=== PATIENT | male | born 1995 | race Caucasian/White ===

== ENCOUNTER 2021-05-06 18:27 | Emergency (ER) | payer SELFPAY ==
[~2021-05-06] VITALS: Ht 188 cm; Wt 88.6 kg
[2021-05-06 19:59] LABS: BASO # 0.1 x10^3/uL (0.0-0.2); BASO % 1 % (0-3); EOS # 0.1 x10^3/uL (0.0-0.7); EOS % 1 % (0-3); HEMATOCRIT 44.7 % (39.0-53.0); HEMOGLOBIN 15.3 g/dL (13.0-17.5); LYMPH # 1.8 x10^3/uL (1.0-4.8); LYMPH % 20 % (24-48); MEAN CORPUSCULAR HEMOGLOBIN 31 pg (25-35); MEAN CORPUSCULAR HGB CONC 34 g/dL (31-37); MEAN CORPUSCULAR VOLUME 91 fL (79-100); MONO # 0.5 x10^3/uL (0.0-1.1); MONO % 6 % (0-9); NEUT # 6.5 x10^3/uL (1.8-7.7); NEUT % 72 % (31-73); PLATELET COUNT 341 x10^3/uL (140-400); RED BLOOD COUNT 4.91 x10^6/uL (4.30-5.70); RED CELL DISTRIBUTION WIDTH 13.9 % (11.5-14.5)
--- NOTE | 2021-05-06 20:01 | RAD ---
XR CHEST 1V 05/06/2021 7:37 PM INDICATION: Chest pain COMPARISON: None available TECHNIQUE: Portable frontal view of the chest is provided. FINDINGS: The cardiomediastinal silhouette is within normal limits. Lungs are clear. There are no significant pleural effusions. There is no pulmonary vascular congestion. No pneumothora x. No suspicious osseous abnormality. IMPRESSION: There is no acute cardiopulmonary process. Electronically signed by: Toshia Carrillo MD (05/06/2021 7:59 PM) [facility]
[2021-05-06 20:16] LABS: PARTIAL THROMBOPLASTIN TIME 28 SEC (24-38); PROTHROMBIN TIME PATIENT 12.3 SEC (11.7-14.0)
[2021-05-06 20:19] LABS: D-DIMER < 0.27 ug/mlFEU (0.00-0.50)
[2021-05-06 20:23] LABS: CALCIUM 9.4 mg/dL (8.5-10.1); CREATININE 1.1 mg/dL (0.7-1.3); POTASSIUM 4.1 mmol/L (3.5-5.1)
--- NOTE | 2021-05-06 20:24 | PHYS DOC ---
Past Medical History Past Surgical History: No Surgical History Smoking Status: Current Every Day Smoker Alcohol Use: Occasionally Adult General Chief Complaint Chief Complaint: CHEST PAIN HPI HPI The patient is a 25-year-old male who is otherwise healthy. He is a smoker. He presents for evaluation of acute on chronic chest discomfort. He states that for about the past 6 months he will intermittently have episodes of left-sided sharp nonexertional nonpleuritic sternal chest discomfort, nonradiating. Discomfort is described as a tightness when it occurs. He states that symptoms will last for several hours when they occur; patient states he usually goes to sleep and wakes up the next morning and symptoms are gone. He lives in [place] and has presented to an [place] emergency department once for evaluation of these symptoms; work-up was reassuring and he was referred to primary care and to cardiology for follow-up. He has seen the primary care doctor once and has not seen cardiology. All of the care in question occurred several months ago. Mr. Martin presents for evaluation of a typical episode of his left-sided sharp sternal chest discomfort. Onset was about 2 hours prior to arrival. Severity about a 3 out of 10 at present and discomfort is described as a tightness. Associated tingling of his bilateral hands. Associated anxiety. Patient is visibly anxious and breathing quickly upon initial evaluation. He denies a ssociated fevers, nausea or vomiting, diaphoresis, headache, focal or lateralizing weakness, numbness or tingling, neck stiffness/pain/meningismus, vision changes, shortness of breath, abdominal pain, flank pain, back pain, dysuria, hematuria, polyuria or oliguria, changes in bowel habits, pain or s welling to arms or legs. Vital signs in triage here are notable for tachycardia as well as elevated blood pressure. After being roomed, both heart rate and blood pressure have normalized without any specific intervention. Review of Systems Review of Systems A 12 point review of systems was completed and was negative except where noted in HPI above. Allergies Allergies Allergies Coded Allergies Type Severity Reaction Last Updated Verified No Known Drug Allergies 05/06/21 No Physical Exam Physical Exam 25-year-old male appearing nontoxic and in no acute distress. He appears anxious. Head is normocephalic and atraumatic. Neck is supple and nontender. Oropharynx is moist. Lungs are clear to auscultation at all stations. There is a normal S1 and S2 without rubs or gallops and capillary refill is appropriate, less than 2 seconds globally. Abdomen is soft, nontender nondistended without pulsatile mass. Skin is warm and dry without cyanosis, clubbing or edema. Psychiatrically, the patient demonstrates appropriate mood and affect and is alert. Evaluation of the extremities reveals BUEs and BLEs neurovascularly intact distally with strength out of 5, sensation intact light touch in all nerve distributions, radial, DP and PT pulses 2+ and equal bilaterally, capillary refill less than 2 seconds, hands and feet warm and well-perfused. No dependent peripheral edema distally. No calf tenderness swelling bilaterally. Homans test is negative bilaterally. Current Patient Data Vital Signs Vital Signs Date Time Temp Pulse Resp B/P (MAP) Pulse Ox O2 Delivery O2 Flow Rate FiO2 05/06/21 19:50 101 18 144/83 (103) 98 Room Air 05/06/21 18:30 98.2 98.2 Lab Values Laboratory Tests Test 05/06/21 19:44 05/06/21 21:27 White Blood Count 9.0 x10^3/uL (4.0-11.0) Red Blood Count 4.91 x10^6/uL (4.30-5.70) Hemoglobin 15.3 g/dL (13.0-17.5) Hematocrit 44.7 % (39.0-53.0) Mean Corpuscular Volume 91 fL (79-100) Mean Corpuscular Hemoglobin 31 pg (25-35) Mean Corpuscular Hemoglobin Concent 34 g/dL (31-37) Red Cell Distribution Width 13.9 % (11.5-14.5) Platelet Count 341 x10^3/uL (140-400) Neutrophils (%) (Auto) 72 % (31-73) Lymphocytes (%) (Auto) 20 % (24-48) L Monocytes (%) (Auto) 6 % (0-9) Eosinophils (%) (Auto) 1 % (0-3) Basophils (%) (Auto) 1 % (0-3) Neutrophils # (Auto) 6.5 x10^3/uL (1.8-7.7) Lymphocytes # (Auto) 1.8 x10^3/uL (1.0-4.8) Monocytes # (Auto) 0.5 x10^3/uL (0.0-1.1) Eosinophils # (Auto) 0.1 x10^3/uL (0.0-0.7) Basophils # (Auto) 0.1 x10^3/uL (0.0-0.2) Prothrombin Time 12.3 SEC (11.7-14.0) Prothrombin Time INR 0.9 (0.8-1.1) Activated Partial Thromboplast Time 28 SEC (24-38) D-Dimer (Sloane) < 0.27 ug/mlFEU Sodium Level 137 mmol/L (136-145) Potassium Level 4.1 mmol/L (3.5-5.1) Chloride Level 99 mmol/L (98-107) Carbon Dioxide Level 30 mmol/L (21-32) Anion Gap 8 (6-14) Blood Urea Nitrogen 23 mg/dL (8-26) Creatinine 1.1 mg/dL (0.7-1.3) Estimated GFR (Cockcroft-Gault) 83.0 BUN/Creatinine Ratio 21 (6-20) H Glucose Level 111 mg/dL (70-99) H Calcium Level 9.4 mg/dL (8.5-10.1) Total Bilirubin 0.5 mg/dL (0.2-1.0) Aspartate Amino Transferase (AST) 14 U/L (15-37) L Alanine Aminotransferase (ALT) 14 U/L (16-63) L Alkaline Phosphatase 72 U/L (46-116) Troponin I High Sensitivity < 4 ng/L (4-75) L < 4 ng/L (4-75) L JI-Psc-T-Type Natriuretic Peptide 5 pg/mL (0-124) Total Protein 8.2 g/dL (6.4-8.2) Albumin 4.4 g/dL (3.4-5.0) Albumin/Globulin Ratio 1.2 (1.0-1.7) Thyroid Stimulating Hormone (TSH) 1.049 uIU/mL (0.358-3.74) Ethyl Alcohol Level < 10 mg/dL (0-10) Urine Opiates Screen Neg (NEG) Urine Methadone Screen Neg (NEG) Urine Barbiturates Neg (NEG) Urine Phencyclidine Screen Neg (NEG) Urine Amphetamine/Methamphetamine Neg (NEG) Urine Benzodiazepines Screen Neg (NEG) Urine Cocaine Screen Neg (NEG) Urine Cannabinoids Screen Pos (NEG) Urine Ethyl Alcohol Neg (NEG) Laboratory Tests 05/06/21 19:44 Laboratory Tests 05/06/21 19:44 EKG EKG Sinus rhythm, rate 131, no acute ST elevation or depression, OK 140, QRS 100, QTc 418, EP interpretation. Nonischemic tracing, intervals appropriate. Radiology/Procedures Radiology/Procedures XR CHEST 1V 05/06/2021 7:37 PM INDICATION: Chest pain COMPARISON: None available TECHNIQUE: Portable frontal view of the chest is provided. FINDINGS: The cardiomediastinal silhouette is within normal limits. Lungs are clear. There are no significant pleural effusions. There is no pulmonary vascular congestion. No pneumothorax. No suspicious osseous abnormality. IMPRESSION: There is no acute cardiopulmonary process. Electronically signed by: Lan Moncada MD (05/06/2021 7:59 PM) [facility] DICTATED and SIGNED BY: LAN MONCADA MD DATE: 05/06/211958 Course & Med Decision Making Course & Med Decision Making 25-year-old gentleman presenting for acute on chronic atypical chest discomfort; in all ways he states this is a very typical episode for him. HEART score 1 (points for tobacco use only), low risk for MACE. Wells low risk for pulmonary embolism. Will check labs, EKG and chest x-ray as noted and will then reevaluate. If work-up is reassuring, anticipate likely delta troponin for disposition. Discussed with the patient that we will provide a close cardiology referral for him in this area as he is going to be here for work for the next couple of weeks. He is in agreement with this plan. 2208: Patient resting comfortably in no acute distress on serial reassessments. Reports his presenting symptoms have entirely resolved. Vital signs including heart rate and blood pressure have normalized during his stay here in the department, without any specific treatment. Labs and imaging, including delta troponin, wholly benign. No evidence of emergency condition has been identified. In view of benign evaluation in this well-appearing young man with few risk factors, will discharge with referral to cardiology for close follow-up for his chronic chest discomfort over many months. He understands that if he feels worse instead of better or develops other new symptoms of concern that he should return to the emergency department right away for reevaluation. All questions are answered. Dragon Disclaimer Dragon Disclaimer This electronic medical record was generated, in whole or in part, using a voice recognition dictation system. Departure Departure Impression: Primary Impression: Other chest pain Disposition: HOME / SELF CARE / HOMELESS Condition: IMPROVED Referrals: YOLI ANDRADE MD Patient Instructions: Chest Pain (Nonspecific) Additional Instructions: Follow-up in the cardiology clinic in the next 2 to 4 days for a reevaluation of your symptoms and a discussion of next best steps in care. Please call the clinic in the morning and let the director clinical research know that you were in the emergency room for chest pain and need to be worked in for a close follow-up appointment with Dr. Andrade or one of his colleagues. They will handle the rest. Drink plenty of fluids and get plenty of rest. Return to the emergency department right away for worsening symptoms of any kind or with any other new symptoms of concern. HOANG FLOWRES MD May 06, 2021 20:24
[2021-05-06 20:29] LABS: ALBUMIN 4.4 g/dL (3.4-5.0); ALBUMIN/GLOBULIN RATIO 1.2 (1.0-1.7); TOTAL BILIRUBIN 0.5 mg/dL (0.2-1.0); TOTAL PROTEIN 8.2 g/dL (6.4-8.2)
[2021-05-06 21:43] LABS: BARBITURATES NEG (NEG); BENZODIAZEPINES NEG (NEG); CANNABINOIDS POS (NEG); COCAINE NEG (NEG); METHADONE NEG (NEG); OPIATES NEG (NEG); PHENCYCLIDINE NEG (NEG)
[2021-05-06 21:44] LABS: AMPHETAMINE/METHAMPHETAMINE NEG (NEG)
[2021-05-06 22:09] VITALS: BP 121/63
--- NOTE | 2021-05-07 02:42 | EKG ---
[facility] [address] [place] [address] Test Date: 2021-05-06 Test Time: 18:44:38 Pat Name: REECE DENIS Department: Room: Gender: M [employer] Sales Representative: : 1995 Requested By: HOANG FLOWERS Order Number: [id number] Reading MD: Zhen Bose Measurements Intervals Silvis Rate: 131 P: 22 UT: 140 QRS: 80 QRSD: 100 T: -28 QT: 280 QTc: 418 Interpretive Statements SINUS TACHYCARDIA LEFT ATRIAL ABNORMALITY T ABNORMALITY IN INFERIOR LEADS ABNORMAL ECG RI6.02 No previous ECG available for comparison Electronically Signed On 05-11-2021 21:48:13 CDT by Zhen Bose
== END 2021-05-06 22:20 | disposition home or self-care (01) ==
LOC: ER 18:27
DX: R07.89 Other chest pain (principal); F17.200 Nicotine dependence, unspecified, uncomplicated
CPT/HCPCS: 36415; 71045; 80053; 80307; 83880; 84443; 84484; 85025; 85379; 85610; 85730; 93005; 99285; G0480